=== PATIENT | female | born 2000 | race African-American/Black ===

== ENCOUNTER 2020-08-11 04:06 | Emergency (ER) | payer BC, SELFPAY ==
[2020-08-11 04:10] VITALS: BP 147/83; PULSE 115; RESP 22; TEMP 36.2; O2SAT 99
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
[2020-08-11] MEDS: LIDOCAINE HCL 1% LOCAL INJ 20 ML VIAL 5 ML INFILTRATE (04:28)
[2020-08-11] MEDS: LIDOCAINE, EPINEPHRINE, TETRACAINE VISCOUS SOLN 3 ML TOPICAL (04:28)
--- NOTE | 2020-08-11 04:29 | PC.NURSE ---
Pt is anxious. I need to some to settle down, and I'll do the stitches Sister with pt. Pt talking to friend on the phone.
--- NOTE | 2020-08-11 05:01 | PC.NURSE ---
Wound cleaned with betadine swabs by EDP. LAC repair completed with 3 sutures and ATB oint and bandaid applied.
[2020-08-11 05:33] VITALS: BP 131/60; PULSE 89; RESP 16; O2SAT 100
== END 2020-08-11 05:33 | disposition home or self-care (01) ==
PROVIDERS: Emergency Provider Emergency Medicine
DX: S01.81XA Laceration without foreign body of other part of head, initial encounter (principal); W20.8XXA Other cause of strike by thrown, projected or falling object, initial encounter
CPT/HCPCS: 12011; 99282